=== PATIENT | male | born 1980 | race Caucasian/White ===

== ENCOUNTER 2023-09-24 10:27 | Emergency (ER) | payer BC, SELFPAY ==
[2023-09-24 10:49] VITALS: BP 149/93; PULSE 60; RESP 18; TEMP 36.6; O2SAT 96; BMI 28.8
--- NOTE | 2023-09-24 10:53 | CT_ITS ---
WS: [id number] CT ABDOMEN PELVIS TECHNIQUE: Noncontrast CT of the abdomen and pelvis with coronal and sagittal reformatted images. CLINICAL INFORMATION: right flank pain COMPARISON: None. DLP: 653.[address] scans at [facility] use at least one of these dose optimization techniques: automated e xposure control; mA and/or kV adjustment per patient size (includes targeted exams where dose is matc hed to clinical indication); or iterative reconstruction. FINDINGS: No hydronephrosis in either kidney. No obstructing renal or ureteral calculi. Nonobstructing subcenti meter renal parenchymal and calyceal tip calculi LEFT kidney. Lung bases are well aerated. Normal noncontrast liver. A few small hepatic cysts largest measuring 12 mm LEFT hepatic lobe. Normal noncontrast spleen. Adrenal glands are normal. Normal noncontrast pancr eas. Normal noncontrast gallbladder. Tiny fat-containing umbilical hernia. Normal sigmoid colon. No evidence of small or large bowel obstruction. No free fluid in the abdomen o r pelvis. CT/CT abdomen pelvis wo con [id number] IMPRESSION: 1. No obstructing renal or ureteral calculi. No hydronephrosis in either kidne y. 2. A few subcentimeter centimeter nonobstructing LEFT renal parenchymal and ca lyceal calculi. 3. A few small hepatic cysts. 4. Normal sigmoid colon. 5. No other suspicious findings.
--- NOTE | 2023-09-24 10:53 | ED_ITS ---
HPI - Back Pain/Injury 2 General: Chief Complaint: Back Pain/Injury Stated Complaint: right back pain Time Seen by Provider: 09/24/23 10:42 History of Present Illness: 43-year-old man who was diagnosed with a left kidney stone a couple days ago who presents the emergency room today with right flank pain. He is on vacation from [place]. Apparently he was seen at a different hospital couple days ago. He says the left side had improved but the right side now was very painful this morning. He did take an oxycodone and pain is quite a bit improved now. No nausea or vomiting. No dysuria. No fevers. Review of Systems 2 Narrative: Constitutional symptoms: Negative except as documented in HPI. Skin symptoms: Negative except as documented in HPI. Eye symptoms: Negative except as documented in HPI. ENMT symptoms: Negative except as documented in HPI. Respiratory symptoms: Negative except as documented in HPI. Cardiovascular symptoms: Negative except as documented in HPI. Gastrointestinal symptoms: Negative except as documented in HPI. Genitourinary symptoms: Negative except as documented in HPI. Musculoskeletal symptoms: Negative except as documented in HPI. Neurologic symptoms: Negative except as documented in HPI. Psychiatric symptoms: Negative except as documented in HPI. Endocrine symptoms: Negative except as documented in HPI. Physical Exam 2 Narrative: EXAM NARRATIVE: General: Alert, no acute distress. Skin: warm and dry Head: Normocephalic Neck: Trachea midline Eye: Extraocular movements are intact. Ears, nose, mouth and throat: Oral mucosa moist Respiratory: Respirations are non-labored Gastrointestinal: Right flank pain Musculoskeletal: Normal ROM Neurological: Alert and oriented, No focal neurological deficit observed. Psychiatric: Cooperative, appropriate mood & affect. Course 2 Vital Signs: Vital signs: Vital Signs Temperature 97.9 F 09/24/23 10:49 Pulse Rate 60 09/24/23 10:49 Respiratory Rate 18 09/24/23 10:49 Blood Pressure 149/93 09/24/23 10:49 Pulse Oximetry 96 09/24/23 10:49 Oxygen Delivery Me thod Room Air 09/24/23 10:49 MDM - Back Pain/Injury Medical Decision Making Medical decision making: Differential diagnosis including but not limited to and based on the above HPI, review of systems and physical exam: Ureterolithiasis. Urinary tract infection. Appendicitis. Cholecystis. Musculoskeletal / back pain. Pyelonephritis Orders placed to evaluate differential diagnosis based on the above differential, HPI and physical exam Lab Review: Laboratory results were reviewed and interpreted by myself the emergency room physician. Lab work is unremarkable. No leukocytosis. No renal failure. Urine is clear. CT of the abdomen pelvis without contrast: No evidence of anything acute. No ureteral stones. No hydronephrosis. There are 2 subcentimeter left kidney stones. This was reviewed and interpreted by myself the emergency room physician. I also reviewed the radiology report. I reviewed the patient's medical record. Reexamination: Patient remained stable. He has been pain-free while he is been here. We discussed he may have passed a small kidney stone. No evidence of blood in his urine or any hydronephrosis. Assessment and plan: Flank pain - Discharged home - Discussed findings and plan with patient. Answered any questions. - All laboratory values were reviewed and interpreted personally by myself, the ER physician - All imaging was reviewed and interpreted personally by myself, the ER physician. - Evaluation and treatment of this problem were appropriate in the emergency setting Labs 09/24/23 11:05 09/24/23 11:05 Radiology Impressions Abdomen/Pelvis CT 09/24/23 10:53 IMPRESSION: 1. No obstructing renal or ureteral calculi. No hydronephrosis in either kidney. 2. A few subcentimeter centimeter nonobstructing LEFT renal parenchymal and calyceal calculi. 3. A few small hepatic cysts. 4. Normal sigmoid colon. 5. No other suspicious findings. Laboratory Results WBC 4.21 10^3/uL (3.29-11.43) 09/24/23 11:05 RBC 4.93 10^6/uL (3.85-5.65) 09/24/23 11:05 Hgb 14.70 g/dL (11.27-16.99) 09/24/23 11:05 Hct 43.9 % (37-53) 09/24/23 11:05 MCV 89.0 fl (82-101) 09/24/23 11:05 MCH 29.8 pg (27-33) 09/24/23 11:05 MCHC 33.5 g/dL (30-55) 09/24/23 11:05 RDW 13.8 % (12.1-15.1) 09/24/23 11:05 Plt Count 184 10^3/cmm (157-399) 09/24/23 11:05 MPV 9.7 fL (7.4-10.4) 09/24/23 11:05 Neut % (Auto) 52.4 % 09/24/23 11:05 Lymph % (Auto) 30.2 % 09/24/23 11:05 [place] % (Auto) 14.3 % 09/24/23 11:05 Eos % (Auto) 2.6 % 09/24/23 11:05 Baso % (Auto) 0.5 % 09/24/23 11:05 Neut # (Auto) 2.21 10^3/uL (1.8-7.7) 09/24/23 11:05 Lymph # (Auto) 1.3 10^3/uL (0.8-4.8) 09/24/23 11:05 [place] # (Auto) 0.6 10^3/uL (0.2-0.9) 09/24/23 11:05 Eos # (Auto) 0.1 10^3/uL (0.0-0.8) 09/24/23 11:05 Baso # (Auto) 0.0 10^3/uL (0.0-0.1) 09/24/23 11:05 Nucleated RBC % (auto) 0 % 09/24/23 11:05 Nucleated RBCs # 0.0 /100WBC 09/24/23 11:05 Sodium 140 mmol/L (136-145) 09/24/23 11:05 Potassium 4.3 mmol/L (3.5-5.1) 09/24/23 11:05 Chloride 104 mmol/L (98-107) 09/24/23 11:05 Carbon Dioxide 27 mmol/L (22-29) 09/24/23 11:05 Anion Gap 13.3 (5-19) 09/24/23 11:05 BUN 11 mg/dL (6-20) 09/24/23 11:05 Creatinine 1.0 mg/dL (0.7-1.2) 09/24/23 11:05 GFR Calculation 81.6 mL/min (90-130) L 09/24/23 11:05 Glucose 88 mg/dL (65-115) 09/24/23 11:05 Calculated Osmolality 289 mOsm/kg (285-295) 09/24/23 11:05 Calcium 9.0 mg/dL (8.5-10.5) 09/24/23 11:05 Total Bilirubin 0.6 mg/dL (0.15-1.2) 09/24/23 11:05 AST 16 U/L (0-40) 09/24/23 11:05 ALT 21 U/L (0-41) 09/24/23 11:05 Alkaline Phosphatase 64 U/L (40-130) 09/24/23 11:05 C-Reactive Protein 3.0 mg/L (0.0-4.9) 09/24/23 11:05 Total Protein 6.6 g/dL (6.6-8.7) 09/24/23 11:05 Albumin 4.0 g/dL (3.5-5.2) 09/24/23 11:05 Globulin 2.6 g/dL (1.3-4.6) 09/24/23 11:05 Urine Color Yellow (Yellow) 09/24/23 11:05 Urine Appearance Clear (CLEAR) 09/24/23 11:05 Urine pH 7 (5-7) 09/24/23 11:05 Ur Specific [place] 1.000 (1.005-1.030) L 09/24/23 11:05 Urine Protein Neg (Negative) 09/24/23 11:05 Urine Glucose (UA) Norm (Normal) 09/24/23 11:05 Urine Ketones Negative (Negative) 09/24/23 11:05 Urine Blood Neg (Negative) 09/24/23 11:05 Urine Nitrate Negative (Negative) 09/24/23 11:05 Urine Bilirubin Neg (Negative) 09/24/23 11:05 Urine Urobilinogen Norm mg/dL (Negative) 09/24/23 11:05 Ur Leukocyte Esterase Negative (Negative) 09/24/23 11:05 Urine RBC None /hpf (0-2) 09/24/23 11:05 Urine WBC None /hpf (0-5) 09/24/23 11:05 Ur Squamous Epith Cells None /hpf (0-5) 09/24/23 11:05 Amorphous Sediment Not Reportable 09/24/23 11:05 Urine Bacteria None /hpf (NONE) 09/24/23 11:05 Urine Mucus None /hpf 09/24/23 11:05 All radiology interpretation(s) finalized by discharge Discharge Plan Discharge Patient Disposition: Home Clinical Impression: Right flank pain Condition: Stable Prescriptions: No Action cyclobenzaprine 10 mg tablet 10 mg PO TID PRN (Reason: muscle spasms) gabapentin 300 mg capsule 600 mg PO DAILY testosterone cypionate 200 mg/mL oil 200 mg IM .TWICE WEEKLY ondansetron 4 mg tablet,disintegrating 4 mg PO Q6H PRN (Reason: Nausea And Vomiting) oxycodone 5 mg tablet 5 mg PO Q6H PRN (Reason: Pain) Discharge Orders: Discharge ED (Routine); Ordered 09/24/23 Ordered By: Leandra Mandujano Discharge Diet: Usual diet Discharge Activity: Resume usual activity Patient Instructions: Opioid Safety, Pain Management Activity Restrictions/Additional Instructions: Thank you for choosing [facility] for your healthcare needs today. Please realize this is an emergency room and that we are providing you with a medical screening exam and this may not be complete and all inclusive of all the testing and or work up that you may need to determine your ailment or severity of your illness. You have been screened and evaluated and felt safe for discharge. Health conditions do change or evolve sometimes and as such it is important that you follow up with your Primary Doctor to be re checked, 3-5 days is a general good time frame for follow up. You are always welcome to return to the ED for re assessment if your symptoms are worsening or you have new concerns Coding Level of Care Code ED [employer] for Willi Medina
[2023-09-24 11:14] LABS: Basophils % 0.5 %; Eosinophils # 0.1 10^3/uL (0.0-0.8); Eosinophils % 2.6 %; Hematocrit 43.9 % (37-53); Lymphocytes # 1.3 10^3/uL (0.8-4.8); Lymphocytes % 30.2 %; Mean Corpuscular HGB Conc 33.5 g/dL (30-55); Mean Corpuscular Hemoglobin 29.8 pg (27-33); Mean Platelet Volume 9.7 fL (7.4-10.4); Monocytes # 0.6 10^3/uL (0.2-0.9); Monocytes % 14.3 %; Neutrophils # 2.21 10^3/uL (1.8-7.7); Neutrophils % 52.4 %; Nucleated Red Blood Cells % 0 %; Platelet Count 184 10^3/cmm (157-399); Red Blood Count 4.93 10^6/uL (3.85-5.65); Red Cell Distribution Width 13.8 % (12.1-15.1); White Blood Count 4.21 10^3/uL (3.29-11.43)
[2023-09-24 11:40] LABS: Alanine Aminotransferase 21 U/L (0-41); Alkaline Phosphatase 64 U/L (40-130); Anion Gap 13.3 (5-19); Aspartate Amino Transferase 16 U/L (0-40); Blood Urea Nitrogen 11 mg/dL (6-20); Carbon Dioxide 27 mmol/L (22-29); Chloride 104 mmol/L (98-107); Creatinine Clr Calc Pharmacy 104.8144; Globulin 2.6 g/dL (1.3-4.6); Glomerular Filtration Rate 81.6 mL/min (90-130); Glucose 88 mg/dL (65-115); Osmolality Calculated 289 mOsm/kg (285-295); Potassium 4.3 mmol/L (3.5-5.1); Sodium 140 mmol/L (136-145); Total Bilirubin 0.6 mg/dL (0.15-1.2); Total Protein 6.6 g/dL (6.6-8.7)
--- NOTE | 2023-09-24 11:47 | PC.PHAR ---
PT HAS TAKEN 1 GABAPENTIN 300MG AND 1 OXYCODONE 5MG TODAY. 09/24/23
[2023-09-24 11:50] LABS: Bilirubin Urine Neg (Negative); Blood Urine Neg (Negative); Glucose Urine UA Norm (Normal); Ketones Urine Negative (Negative); Leukocyte Esterase Urine Negative (Negative); Nitrate Urine Negative (Negative); Protein Urine Neg (Negative); Urine Appearance Clear (CLEAR); Urine Color Yellow (Yellow); Urobilinogen Urine Norm (Negative); pH Urine 7 (5-7)
[2023-09-24 11:54] LABS: Add Urine Culture? No
[2023-09-24 12:37] VITALS: PULSE 60; O2SAT 98
== END 2023-09-24 12:39 | disposition home or self-care (01) ==
PROVIDERS: Emergency Provider Emergency Medicine
DX: R10.9 Unspecified abdominal pain (principal); Z87.442 Personal history of urinary calculi
CPT/HCPCS: 74176; 80053; 81001; 85025; 86140; 99284